=== PATIENT | female | born 1965 | race Caucasian/White ===

== ENCOUNTER 2022-06-14 10:19 | Outpatient (CLI) | payer OTHER, SELFPAY ==
--- NOTE | 2022-06-14 10:26 | MM_ITS ---
WS: [id number] BILATERAL SCREENING DIGITAL TOMOSYNTHESIS MAMMOGRAM WITH CAD HISTORY: SCREENING COMPARISON: 09/26/2020, 09/17/2020 Bilateral CC and MLO views with tomosynthesis and synthetic mammography submitted. Computer aided det ection analyzed. Breast composition: There are scattered areas of fibroglandular density. No suspicious masses, microc alcifications or architectural distortion. Incompletely visualized nodule in the posterior lateral RI GHT breast was present on 09/17/2020 with no increase in size. Biopsy clip RIGHT breast at 9:00. MM/[place] [id number] IMPRESSION: BI-RADS: 2-Benign FOLLOW UP: 1 Year Follow-up
== END 2022-06-14 10:20 | disposition home or self-care (01) ==
LOC: RAD 10:22
PROVIDERS: Visit Provider Nurse Practitioner Family
DX: Z12.31 Encounter for screening mammogram for malignant neoplasm of breast (principal)
CPT/HCPCS: 77063; 77067

== ENCOUNTER 2023-09-08 12:20 | Outpatient (CLI) | payer OTHER, SELFPAY ==
--- NOTE | 2023-09-08 13:16 | MM_ITS ---
WS: [id number] BILATERAL SCREENING DIGITAL TOMOSYNTHESIS MAMMOGRAM WITH CAD HISTORY: SCREENING COMPARISON: 11/30/2014, 06/14/2022 and Bilateral CC and MLO views with tomosynthesis and synthetic mammography submitted. Computer aided det ection analyzed. Breast composition: There are scattered areas of fibroglandular density. No suspicious masses, microc alcifications or architectural distortion. Biopsy clip in the lateral RIGHT breast near 9:00. IMPRESSION: MM/[place] [id number] BI-RADS: 2-Benign FOLLOW UP: 1 Year Follow-up
== END 2023-09-08 12:21 | disposition home or self-care (01) ==
LOC: RAD 12:21
PROVIDERS: Visit Provider Family Medicine
DX: Z12.31 Encounter for screening mammogram for malignant neoplasm of breast (principal); R92.323 Mammographic fibroglandular density, bilateral breasts
CPT/HCPCS: 77063; 77067

== ENCOUNTER 2024-05-06 08:30 | Emergency (ER) | payer OTHER, SELFPAY ==
--- NOTE | 2024-05-06 08:29 | ECG_ITS ---
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 Measurements Intervals [place] Rate: 70 P: 23 FL: 184 QRS: 59 QRSD: 90 T: 60 QT: 402 QTc: 435 Interpretive Statements SINUS RHYTHM No previous ECG available for comparison Electronically Signed On 05-06-2024 19:25:30 CDT by Yaa Hawkins M.D. [id number]
[2024-05-06 08:31] VITALS: BP 151/87; PULSE 76; RESP 18; TEMP 36.6; O2SAT 98; BMI 31.0
--- NOTE | 2024-05-06 08:40 | XRR_ITS ---
PROCEDURE INFORMATION: Exam: XR Complete Acute Abdomen Series Including Chest Exam date and time: 05/06/2024 9:18 AM Age: 58 years old Clinical indication: Constipation; Abdominal pain; Prior surgery; Surgery date: 6+ months; Surgery type: Gallbladder, appendectomy; Additional info: Abdominal pain, syncope TECHNIQUE: Imaging protocol: Radiologic exam. Complete acute abdomen series, including 2 or more views of the abdomen and a single view chest. COMPARISON: No relevant prior studies available. FINDINGS: Lungs: Normal. No consolidation. Pleural spaces: Normal. No pleural effusions. No pneumothorax. Heart/Mediastinum: Normal. No cardiomegaly. Gastrointestinal tract: Pfyj-wp-[id number] fecal burden. No bowel dilation. Intraperitoneal space: There are right upper quadrant clips.. No free air. Bones/joints: Normal. No acute fracture. Soft tissues: Normal. XR/XR acute abdomen series [id number] IMPRESSION: No acute findings.
--- NOTE | 2024-05-06 08:42 | ED_ITS ---
HPI - Syncope 2 General: Chief Complaint: Syncope Stated Complaint: near syncope Time Seen by Provider: 05/06/24 08:36 History of Present Illness: 58-year-old female with a history of lisandra ball who presents emergency room from work by ambulance after having a syncopal event. She said she gone to the bathroom and lost bearing down to try to have a bowel movement and ended up passing out and had some vomiting. Says she was feeling fine prior to this. She says she been constipated since she started Trulicity. Still having some abdominal cramping and feels like she needs to go to the bathroom still. No fevers. No chills. No chest pain. No shortness of breath. No altered mental status. No focal motor deficits. EMS reports normal vitals when they arrived to pick her up. Related Data Previous Rx's Medication Instructions Recorded amoxicillin 875 mg-potassium 1 tab PO BID 10 days #20 tabs 05/06/24 clavulanate 125 mg tablet glycerin (adult) 1 supp MI DAILY PRN constipation 05/06/24 #12 ea magnesium citrate 296 ml PO ONCE #296 mL 05/06/24 ondansetron 8 mg disintegrating 8 mg PO Q6H #14 tabs 05/06/24 tablet polyethylene glycol 3350 17 17 g PO DAILY #510 grams 05/06/24 gram/dose oral powder (Miralax) Review of Systems 2 Narrative: Constitutional symptoms: Negative except as documented in HPI. Skin symptoms: Negative except as documented in HPI. Eye symptoms: Negative except as documented in HPI. ENMT symptoms: Negative except as documented in HPI. Respiratory symptoms: Negative except as documented in HPI. Cardiovascular symptoms: Negative except as documented in HPI. Gastrointestinal symptoms: Negative except as documented in HPI. Genitourinary symptoms: Negative except as documented in HPI. Musculoskeletal symptoms: Negative except as documented in HPI. Neurologic symptoms: Negative except as documented in HPI. Psychiatric symptoms: Negative except as documented in HPI. Endocrine symptoms: Negative except as documented in HPI. Physical Exam 2 Narrative: EXAM NARRATIVE: General: Alert, no acute distress. Skin: Warm, dry. Head: Normocephalic, atraumatic. Neck: Supple, trachea midline. Eye: Extraocular movements are intact. Ears, nose, mouth and throat: mucosa moist. Cardiovascular: Regular, Normal peripheral perfusion. Respiratory: Lungs are clear to auscultation, respirations are non-labored, breath sounds are equal, Symmetrical chest wall expansion. Gastrointestinal: Soft, Nontender, Non distended Musculoskeletal: Normal ROM, no deformity. Neurological: Alert and oriented, No focal neurological deficit observed. Psychiatric: Cooperative, appropriate mood & affect. Course 2 Vital Signs: Vital signs: Vital Signs Temperature 97.8 F 05/06/24 08:31 Pulse Rate 78 05/06/24 10:01 Respiratory Rate 18 05/06/24 08:31 Blood Pressure 162/89 05/06/24 10:01 Pulse Oximetry 98 05/06/24 10:01 Oxygen Delivery Me thod Room Air 05/06/24 10:01 MDM - Syncope Medical Decision Making Medical decision making: Differential diagnosis including but not limited to and based on the above HPI, review of systems and physical exam in this patient with syncope: Vasovagal, orthostatics hypotension, cardiac dysrhythmia, myocardial infarction, infection and hypotension, Orders placed to evaluate differential diagnosis based on the above differential, HPI and physical exam EKG: Time 8:29 AM. Rate 70. Normal sinus rhythm, No ST-T changes, no ectopy, normal MI & QRS intervals, This was reviewed and interpreted by myself the ER physician at 8:33 AM Acute abdominal series: chest x-ray: No acute process. No obvious infiltrates. No pneumothorax. No cardiomegaly. This was reviewed and interpreted by myself the emergency room physician Abdomen x-ray: Nonspecific bowel gas pattern. No evidence of free air or obstruction. This was reviewed and interpreted by myself the emergency room physician. Lab Review: Laboratory results were reviewed and interpreted by myself the emergency room physician. No leukocytosis. No anemia. BUN/creatinine are 17 and 0.7. Sugar is elevated at 236. Urinalysis is negative for infection. CT of the abdomen pelvis with contrast: This shows diffuse colitis. This was reviewed and interpreted by myself the emergency room physician. I also reviewed the radiology report. I reviewed the patient's medical record. Reexamination: Patient remained stable. No increased work of breathing. No altered mental status. No focal motor deficits. No dysrhythmias. Assessment and plan: Colitis Syncope Hyperglycemia ?Normal saline bolus in the emergency room. - Discharged home - Discussed findings and plan with patient. Answered any questions. - All laboratory values were reviewed and interpreted personally by myself, the ER physician - All imaging was reviewed and interpreted personally by myself, the ER physician. - Evaluation and treatment of this problem were appropriate in the emergency setting Lab Data 05/06/24 09:09 05/06/24 09:09 Radiology Impressions Chest/Abdomen X-ray 05/06/24 08:40 IMPRESSION: No acute findings. Abdomen/Pelvis CT 05/06/24 10:09 IMPRESSION: Diffuse colitis Laboratory Results WBC 8.86 10^3/uL (3.29-11.43) 05/06/24 09:09 RBC 4.76 10^6/uL (3.85-5.65) 05/06/24 09:09 Hgb 13.80 g/dL (11.27-16.99) 05/06/24 09:09 Hct 42.2 % (36-47) 05/06/24 09:09 MCV 88.7 fl (85-98) 05/06/24 09:09 MCH 29.0 pg (27-33) 05/06/24 09:09 MCHC 32.7 g/dL (30-55) 05/06/24 09:09 RDW 12.9 % (12.1-15.1) 05/06/24 09:09 Plt Count 227 10^3/cmm (157-399) 05/06/24 09:09 MPV 10.5 fL (7.4-10.4) H 05/06/24 09:09 Neut % (Auto) 70.1 % 05/06/24 09:09 Lymph % (Auto) 18.8 % 05/06/24 09:09 [place] % (Auto) 7.7 % 05/06/24 09:09 Eos % (Auto) 2.6 % 05/06/24 09:09 Baso % (Auto) 0.3 % 05/06/24 09:09 Neut # (Auto) 6.21 10^3/uL (1.8-7.7) 05/06/24 09:09 Lymph # (Auto) 1.7 10^3/uL (0.8-4.8) 05/06/24 09:09 [place] # (Auto) 0.7 10^3/uL (0.2-0.9) 05/06/24 09:09 Eos # (Auto) 0.2 10^3/uL (0.0-0.8) 05/06/24 09:09 Baso # (Auto) 0.0 10^3/uL (0.0-0.1) 05/06/24 09:09 Nucleated RBC % (auto) 0 % 05/06/24 09:09 Nucleated RBCs # 0.0 /100WBC 05/06/24 09:09 Sodium 139 mmol/L (136-145) 05/06/24 09:09 Potassium 3.2 mmol/L (3.5-5.1) L 05/06/24 09:09 Chloride 99 mmol/L (98-107) 05/06/24 09:09 Carbon Dioxide 27 mmol/L (22-29) 05/06/24 09:09 Anion Gap 16.2 (5-19) 05/06/24 09:09 BUN 17 mg/dL (6-20) 05/06/24 09:09 Creatinine 0.7 mg/dL (0.5-0.9) 05/06/24 09:09 GFR Calculation 86.6 mL/min (90-130) L 05/06/24 09:09 Glucose 236 mg/dL (65-115) H 05/06/24 09:09 Calculated Osmolality 297 mOsm/kg (285-295) H 05/06/24 09:09 Lactic Acid 2.8 mmol/L (0.5-2.2) H 05/06/24 09:09 Calcium 9.4 mg/dL (8.5-10.5) 05/06/24 09:09 Total Bilirubin 0.4 mg/dL (0.15-1.2) 05/06/24 09:09 AST 21 U/L (0-32) 05/06/24 09:09 ALT 20 U/L (0-33) 05/06/24 09:09 Alkaline Phosphatase 120 U/L (35-105) H 05/06/24 09:09 Troponin T Baseline < 6 ng/L (0-10) 05/06/24 09:09 C-Reactive Protein 7.9 mg/L (0.0-4.9) H 05/06/24 09:09 Total Protein 7.0 g/dL (6.6-8.7) 05/06/24 09:09 Albumin 4.3 g/dL (3.5-5.2) 05/06/24 09:09 Globulin 2.7 g/dL (1.3-4.6) 05/06/24 09:09 Urine Color Yellow (Yellow) 05/06/24 10:28 Urine Appearance Clear (CLEAR) 05/06/24 10:28 Urine pH 7.5 (5-7) 05/06/24 10:28 Ur Specific [place] 1.012 (1.005-1.030) 05/06/24 10:28 Urine Protein Negative (Negative) 05/06/24 10:28 Urine Glucose (UA) Trace (Normal) H 05/06/24 10:28 Urine Ketones Negative (Negative) 05/06/24 10:28 Urine Blood Non-haemolysed trace (Negative) 05/06/24 10:28 Urine Nitrate Negative (Negative) 05/06/24 10:28 Urine Bilirubin Negative (Negative) 05/06/24 10:28 Urine Urobilinogen 2.0 mg/dL (Negative) H 05/06/24 10:28 Ur Leukocyte Esterase Negative (Negative) 05/06/24 10:28 Urine RBC 3-5 /hpf (0-2) 05/06/24 10:28 Urine WBC 0-5 /hpf (0-5) 05/06/24 10:28 Ur Squamous Epith Cells 0-5 /hpf (0-5) 05/06/24 10:28 Amorphous Sediment Not Reportable 05/06/24 10:28 Urine Bacteria Trace /hpf (NONE) 05/06/24 10:28 Hyaline Casts 0-4 /lpf H 05/06/24 10:28 Coronavirus (PCR) Negative (Negative) 05/06/24 09:12 Influenza A (PCR) Negative (Negative) 05/06/24 09:12 Influenza Type B (PCR) Negative (Negative) 05/06/24 09:12 RSV (PCR) Negative (Negative) 05/06/24 09:12 All radiology interpretation(s) finalized by discharge Discharge Plan Discharge Patient Disposition: Home Clinical Impression: Colitis, Vasovagal syncope, Abdominal pain, Constipation, Dehydration, Hyperglycemia Condition: Stable Prescriptions: New ondansetron 8 mg tablet,disintegrating 8 mg PO Q6H Qty: 14 0RF Rx Instructions: Take 1/2-1 tab every 6 hours as needed for nausea and vomiting magnesium citrate Solution 296 ml PO ONCE Qty: 296 0RF Miralax 17 gram/dose powder 17 g PO DAILY Qty: 510 0RF Rx Instructions: Take 1-2 scoops daily for the next 3 months to keep stools soft glycerin (adult) Suppository 1 supp MI DAILY PRN (Reason: constipation) Qty: 12 0RF amoxicillin-pot clavulanate 875-125 mg tablet 1 tab PO BID 10 Days Qty: 20 0RF Discharge Orders: Discharge ED (Routine); Ordered 05/06/24 Ordered By: Kate Roque Discharge Diet: Usual diet Discharge Activity: Increase activity as tolerated Patient Instructions: Constipation (ED), Syncope (ED), Colitis (ED) Activity Restrictions/Additional Instructions: Thank you for choosing [facility] for your healthcare needs today. Please realize this is an emergency room and that we are providing you with a medical screening exam and this may not be complete and all inclusive of all the testing and or work up that you may need to determine your ailment or severity of your illness. You have been screened and evaluated and felt safe for discharge. Health conditions do change or evolve sometimes and as such it is important that you follow up with your Primary Doctor to be re checked, 3-5 days is a general good time frame for follow up. You are always welcome to return to the ED for re assessment if your symptoms are worsening or you have new concerns Coding Level of Care Code ED Subassembler for Jameel Navarro
[2024-05-06] MEDS: sodium chloride 0.9% 1,000 ML 999 ML IV (09:14)
[2024-05-06 09:18] LABS: Basophils % 0.3 %; Eosinophils # 0.2 10^3/uL (0.0-0.8); Eosinophils % 2.6 %; Hematocrit 42.2 % (36-47); Lymphocytes # 1.7 10^3/uL (0.8-4.8); Lymphocytes % 18.8 %; Mean Corpuscular HGB Conc 32.7 g/dL (30-55); Mean Corpuscular Volume 88.7 fl (85-98); Mean Platelet Volume 10.5 fL (7.4-10.4); Monocytes # 0.7 10^3/uL (0.2-0.9); Monocytes % 7.7 %; Neutrophils # 6.21 10^3/uL (1.8-7.7); Neutrophils % 70.1 %; Nucleated Red Blood Cells % 0 %; Platelet Count 227 10^3/cmm (157-399); Red Blood Count 4.76 10^6/uL (3.85-5.65); Red Cell Distribution Width 12.9 % (12.1-15.1); White Blood Count 8.86 10^3/uL (3.29-11.43)
[2024-05-06 09:40] LABS: Alanine Aminotransferase 20 U/L (0-33); Albumin Level 4.3 g/dL (3.5-5.2); Alkaline Phosphatase 120 U/L (35-105); Anion Gap 16.2 (5-19); Aspartate Amino Transferase 21 U/L (0-32); Blood Urea Nitrogen 17 mg/dL (6-20); C Reactive Protein 7.9 mg/L (0.0-4.9); Calcium 9.4 mg/dL (8.5-10.5); Carbon Dioxide 27 mmol/L (22-29); Chloride 99 mmol/L (98-107); Creatinine Clr Calc Pharmacy 79.5436; Globulin 2.7 g/dL (1.3-4.6); Glomerular Filtration Rate 86.6 mL/min (90-130); Glucose 236 mg/dL (65-115); Osmolality Calculated 297 mOsm/kg (285-295); Potassium 3.2 mmol/L (3.5-5.1); Sodium 139 mmol/L (136-145); Total Bilirubin 0.4 mg/dL (0.15-1.2)
[2024-05-06 09:41] LABS: Lactic Sepsis W/Reflex 2.8 mmol/L (0.5-2.2)
[2024-05-06 09:59] LABS: Covid PCR NEGATIVE (Negative); Influenza A NEGATIVE (Negative); Influenza B NEGATIVE (Negative); Respiratory Syncytial Virus Ce NEGATIVE (Negative)
[2024-05-06 10:01] VITALS: BP 162/89; PULSE 78; O2SAT 98
[2024-05-06 10:02] LABS: Troponin(5th) Baseline < 6 ng/L (0-10)
--- NOTE | 2024-05-06 10:09 | CTR_ITS ---
PROCEDURE INFORMATION: Exam: CT Abdomen And Pelvis With Contrast Exam date and time: 05/06/2024 10:47 AM Age: 58 years old Clinical indication: Abdominal pain; Localized; Lower; Prior surgery; Surgery date: 6+ months; Surgery type: Gb TECHNIQUE: Imaging protocol: Computed tomography of the abdomen and pelvis with contrast. Radiation optimization: All CT scans at this facility use at least one of these dose optimization techniques: automated exposure control; mA and/or kV adjustment per patient size (includes targeted exams where dose is matched to clinical indication); or iterative reconstruction. Contrast material: OMNIPAQUE 350; Contrast volume: 100 ml; Contrast route: INTRAVENOUS (IV); COMPARISON: CR (ABDOMEN, ) 05/06/2024 9:18 AM RADIATION DOSE METRICS: Total DLP (mGy-cm): 533.73 FINDINGS: Lungs: Lung bases are clear. No pleural effusion. Liver: Normal. No mass. Gallbladder and biliary ducts: The gallbladder has been resected. Pancreas: Normal. No ductal dilation. Spleen: Normal. No splenomegaly. Adrenal glands: Normal. No mass. Kidneys and ureters: Normal. No hydronephrosis. Stomach and bowel: There is prominent wall inflammation involving the entire colon. No bowel distension noted. Appendix: No evidence of appendicitis. Intraperitoneal space: Unremarkable. No free air. No significant fluid collection. Vasculature: Unremarkable. No abdominal aortic aneurysm. Lymph nodes: Unremarkable. No enlarged lymph nodes. Urinary bladder: Unremarkable as visualized. Reproductive: Unremarkable as visualized. Bones/joints: Unremarkable. No acute fracture. Soft tissues: Unremarkable. CT/CT abdomen pelvis w con* [id number] IMPRESSION: Diffuse colitis
[2024-05-06 10:36] LABS: Bilirubin Urine Negative (Negative); Blood Urine Non-haemolysed trace (Negative); Glucose Urine UA Trace (Normal); Ketones Urine Negative (Negative); Leukocyte Esterase Urine Negative (Negative); Nitrate Urine Negative (Negative); Protein Urine Negative (Negative); Specific Gravity, Urine 1.012 (1.005-1.030); Urine Appearance Clear (CLEAR); Urine Color Yellow (Yellow); pH Urine 7.5 (5-7)
[2024-05-06 10:41] LABS: Bacteria Urine Trace /hpf; Hyaline Casts Urine 0-4 /lpf; Squamous Epithelial Cell Urine 0-5 /hpf (0-5); WBC Urine 0-5 /hpf (0-5)
[2024-05-06] MEDS: iohexol 350 mg/mL 500 mL Btl (per mL) IV (10:50)
[2024-05-06 11:02] LABS: Reflex Lactate Order REFLEX LACTIC ORDERD
[2024-05-06 13:02] VITALS: BP 175/89; PULSE 91; O2SAT 95
== END 2024-05-06 12:40 | disposition home or self-care (01) ==
PROVIDERS: Emergency Provider Emergency Medicine
DX: R55 Syncope and collapse (principal); K52.9 Noninfective gastroenteritis and colitis, unspecified; K59.00 Constipation, unspecified; E86.0 Dehydration; R73.9 Hyperglycemia, unspecified
CPT/HCPCS: 0241U; 36415; 74022; 74177; 80053; 81001; 83605; 84484; 85025; 86140; 93005; 99285; J7030

== ENCOUNTER 2025-03-24 04:18 | Emergency (ER) | payer OTHER, SELFPAY ==
--- OUTSIDE RECORDS SUMMARY | 2013-12-22 15:16 | XMS_ITS | Continuity of Care Document ---
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 Wearing Apparel Shaker Name Role Phone Unavailable Unavailable Unavailable Medications Medication Instructions Dosage Effective Dates (start - stop) Status Comments metformin 500 mg tablet take 1 tablet (500MG) by oral route every day 500 MG - Active terbinafine 1 % Topical Cream apply by topical route every day to the affected and surrounding areas of skin for ringworm 0.00 - Active atenolol 25 mg tablet take 1 tablet (25MG) by oral route every day for hyperthyroidism 25 MG - Active lisinopril 20 mg tablet take 1 tablet (20MG) by oral route every day 20 MG - Active methimazole 10 mg tablet take 1 tablet (10MG) by oral route every day 10 MG - Active Procedures Procedure Date COLLECTION OF VENOUS BLOOD BY VENIPUNCTU RE OFFICE/OUTPATIENT VISIT, EST COLLECTION OF VENOUS BLOOD BY VENIPUNCTU RE OFFICE/OUTPATIENT VISIT, EST INFLUENZA VACCINE, AGE 3YRS+ Immun admin-adult or WO counseling - fir st vaccine/toxoid COLLECTION OF VENOUS BLOOD BY VENIPUNCTU RE COLLECTION OF VENOUS BLOOD BY VENIPUNCTU RE Extraction erupted tooth or exposed root Limit oral eval problem focused 012 Periapical first film Advance Directives Directive Yes / No Effective Date File Name No Information Encounters Encounter Description Practice Location Reason(s) For Visit Diagnoses Date Provider Providers Copied on Encounter [facility], [address], [place], [place], [address] , [place] tel: [phone] [facility] No Information 4 No Information OFFICE/OUTPA TIENT VISIT, EST [facility], [address], [place], [place], [address] , [place] tel: [phone] [facility] follow up on lab / diagnostic test (chief complaint) HTN (hypertension)H yperthyroidismP rediabetesTrans aminitis 2 No Information [facility], [address], [place], [place], [id number] , [place] tel: [phone] [facility] No Information 2 No Information OFFICE/OUTPA TIENT VISIT, EST [facility], [address], [place], [place], [address] , [place] tel: [phone] [facility] follow up on lab / diagnostic test (chief complaint) Hyperthyroidism Transaminitis 2 No Information [facility], [address], [place], [place], [address] , [place] tel: [phone] [facility] hypertension (chief complaint)ski n rash (chief complaint) HTN (hypertension)R outine health maintenanceNeed for prophylactic vaccination and inoculation, influenza 2 No Information [facility], [address], [place], [place], [address] , [place] tel: [phone] [facility] hypertension (chief complaint) Other malaise and fatigueBenign essential hypertension 2 No Information [facility], [address], [place], [place], [address] , [place] tel: [phone] [facility] Dental examination 2 No Information [facility], [address], [place], [place], [address] , [place] tel: [phone] [facility] examination 2 No Information Family History Family Member Type Diagnosis Age At Onset Problem (finding) Family history of Diabe jono mellitus Sister Problem (finding) Cancer, unknown Sister Problem (finding) Mental illness Sister Problem (finding) Renal disease Problem (finding) Family history of Diabe jono mellitus Immunizations Vaccine Date Status Comments Flu (split) (3 yrs or older) administered Source: New Immunization Record Payers Payer name Insurance type Covered democrat ID Authoriza tion(s) No Information Social History Type Description Quantity Date Captured Comments Sex Female Smoking Status No Information Chief Complaint And Reason For Visit No Information Reason For Referral Reason For Referral No Information Plan Of Treatment Date Type Action Status Referral Referred To: [facility] [phone] Ordered: Referral: [facility]. Mammography Screening Cntr. Diagnostic testing. ordered Future Order: Lab Order CBC (INC LUDES DIFF/PLT) ([id number]), Appointment on: , Sent on: Sent Future Order: Lab Order COMPREHE NSIVE METABOLIC PANEL W/EGFR ([id number]), Appointment on: , Sent on: Sent History Of Present Illness Encounter Date Complaint History Of Prese nt Illness No Information Functional Status Date Functional Assessmen t No Information Instructions Date Instruction Additional Infor mation Home blood pressure check Increase activity level Take medications as prescribed Assessments Type Assessment Date No Information Patient Care Teams Name Effective Dates (start - stop) Status Members No Information
--- NOTE | 2025-03-24 04:23 | ECG_ITS ---
[facility]25[facility]24 Pat Name: Annabelle Schmitz Department: Room: Gender: Female Cst: : 1965 Requested By: Chandana Morris Order Number: [id number] Ghassan MD: Yaa Hawkins M.D. Measurements Intervals [place] Rate: 63 P: 8 MI: 177 QRS: 43 QRSD: 82 T: 68 QT: 405 QTc: 416 Interpretive Statements SINUS RHYTHM Compared to ECG 05/06/2024 08:29:38 No significant changes Electronically Signed On 03-26-2025 08:17:46 CDT by Yaa Hawkins M.D. [email or web address]
--- OUTSIDE RECORDS SUMMARY | 2025-03-24 04:25 | XMS_ITS | Clinical Summary ---
Author Organization [facility] Address [address] [place] [address] DAPHNE MILLER [phone] Phone Care Team Providers Care Financial Services Internship Name Role Phone Unavailable Primary Care Provider Unavailabl e Social History Tobacco Use Types Packs/Day Years Used Date Smoking Tobacco: Never Assessed Comments Unknown Sex and Gender Information Value Date Recorded Sex Assigned at Not on file Legal Sex Female 10:39 PM CDT Gender Identity Not on file Sexual Orientation Not on file Plan of Treatment Health Maintenance Due Date Last Done Comments DIABETES ANNUAL FOOT EXAM 10/18/1985 DIABETES ANNUAL RETINAL EXAM 10/18/1985 DIABETES MICROALBUMIN ANNUAL SCREEN 10/18/1985 LDL CHOLESTEROL ANNUAL 10/18/1985 HEPATITIS B VACCINES (1 of 3 - 19+ 3-dose series) 10/18/1986 COLORECTAL SCREENING 10/18/2012 Colorectal Cancer Screening 10/18/2012 FIT-DNA Q 3 years 10/18/2012 FIT/FOBT Q 1 year 10/18/2012 Flex Sig/CT Colonography Q 5 years 10/18/2012 ZOSTER VACCINE (1 of 2) 10/18/2017 DIABETES HBA1C Q 6 MONTHS 03/09/2021 09/09/2020 BREAST CANCER SCREENING 10/21/2021 10/21/2020, 10/21 INFLUENZA VACCINE (#1) 2025 , 08/10/2019, 05/04/2012 DTAP/TDAP/TD VACCINES (2 - T d or Tdap) 08/10/2029 08/10/2019 Insurance [employer]
[2025-03-24 04:32] VITALS: BP 224/101; PULSE 68; RESP 20; TEMP 36.9; O2SAT 99; BMI 31.2
--- NOTE | 2025-03-24 04:39 | XRR_ITS ---
PROCEDURE INFORMATION: Exam: XR Chest Exam date and time: 03/24/2025 4:42 AM Age: 59 years old Clinical indication: Other: Hypertensive; Additional info: HTN TECHNIQUE: Imaging protocol: Radiologic exam of the chest. Views: 1 view. COMPARISON: CR XR acute abdomen series [id number] 05/06/2024 9:18 AM FINDINGS: Lungs: Unremarkable. No consolidation. Pleural spaces: Unremarkable. No pleural effusion. No pneumothorax. Heart/Mediastinum: Unremarkable. No cardiomegaly. Bones/joints: Unremarkable. XR/XR chest 1V portable [id number] IMPRESSION: There is no evidence of active disease.
[2025-03-24 04:46] LABS: Hematocrit 41.6 % (36-47); Hemoglobin 13.60 g/dL (11.27-16.99); Mean Corpuscular HGB Conc 32.7 g/dL (30-55); Mean Corpuscular Hemoglobin 28.2 pg (27-33); Mean Corpuscular Volume 86.1 fl (85-98); Nucleated Red Blood Cells % 0 %; Platelet Count 237 10^3/cmm (157-399); Red Blood Count 4.83 10^6/uL (3.85-5.65); White Blood Count 6.31 10^3/uL (3.29-11.43)
[2025-03-24 04:47] VITALS: BP 198/114; PULSE 62; RESP 18; O2SAT 98
[2025-03-24] MEDS: hyDRALAzine 20 mg/mL INJ 1 mL IVP (04:53)
[2025-03-24 05:00] VITALS: BP 163/83; PULSE 78; RESP 16; O2SAT 98
--- NOTE | 2025-03-24 05:06 | W.ED.GENADLT ---
HPI - General Adult General: Chief complaint: General Medical Stated complaint: high blood pressure shootingarm/shoulder/back pain Time Seen by Provider: 03/24/25 04:41 History of Present Illness: 59-year-old female with a history of hypertension. She presents with left-sided shoulder pain radiating into her arm. She has been out of her blood pressure medication for a month or so. She notes that her blood pressure has been high. The pain worried her because of this this morning. She usually takes enalapril/hydrochlorothiazide to control her blood pressure. As above she has been out for a month. No overt chest pain or shortness of breath. She has had some fatigue. She has been meaning to call her doctor to get her medication refilled but has not taken the time Related Data Previous Rx's ?Medication ?Instructions ?Recorded glycerin (adult) 1 supp CA DAILY PRN constipation 05/06/24 #12 ea magnesium citrate 296 ml PO ONCE #296 mL 05/06/24 ondansetron 8 mg disintegrating 8 mg PO Q6H #14 tabs 05/06/24 tablet polyethylene glycol 3350 17 17 g PO DAILY #510 grams 05/06/24 gram/dose oral powder (Miralax) enalapril 10 1 tab PO DAILY #30 tabs 03/24/25 mg-hydrochlorothiazide 25 mg tablet Allergies Allergy/AdvReac Type Severity Reaction Status Date / Time No Known Allergies Allergy Verified 03/24/25 04:46 Physical Exam Const: COMMON NORMALS: no acute distress GENERAL APPEARANCE: cooperative; not ill appearing and not frail appearing HENMT: COMMON NORMALS: normocephalic, atraumatic and Normal external nose present HEAD & SCALP: normocephalic and atraumatic FACE & SINUS: normal facial exam and face symmetric NOSE: Normal external nose present Eye: COMMON NORMALS: Equal, round and reactive pupils present and EOMs intact bilaterally PUPIL: Yes Equal, round and reactive pupils present Neck/C-Spine: GENERAL: Yes trachea midline Chest: CHEST: Yes Symmetrical chest wall rise Resp: COMMON NORMALS: normal respiratory effort, No retractions, No use of accessory muscles and clear to auscultation bilaterally AUSCULTATION: clear to auscultation bilaterally Cardio: COMMON NORMALS: regular rate and regular rhythm RATE: regular rate RHYTHM: regular rhythm GI: COMMON NORMALS: Normal to inspection, nondistended, normoactive bowel sounds present Extremity: COMMON NORMALS: no pedal edema Neuro: ED COMA SCALE: document GCS findings [place] coma scale eye opening: Spontaneous [place] coma scale verbal response: Orientated [place] coma scale motor response: Obey commands Ed coma scale total score: 15 SENSORY EXAM: Yes extremities (intact) Psych: COMMON NORMALS: speech normal SPEECH: Yes normal speech Skin: COMMON NORMALS: no rashes or lesions noted GENERAL SKIN EXAM: no rashes or lesions noted Course Vital Signs: Vital signs: Vital Signs Temperature 98.4 F 03/24/25 04:32 Pulse Rate 80 03/24/25 05:28 Respiratory Rate 16 03/24/25 05:28 Blood Pressure 163/83 03/24/25 05:28 Pulse Oximetry 97 03/24/25 05:28 Oxygen Delivery Me thod Room Air 03/24/25 04:32 MDM - General Adult Medical Decision Making Blood pressure improved after medication. EKG is normal. Chest x-ray is normal. CBC is normal. Urinalysis shows no significant proteinuria. With improvement in her pressure, she will be discharged to home on her home medication. She is to check her blood pressure twice daily and follow-up closely with her doctor. Lab Data 03/24/25 04:30 03/24/25 04:30 Radiology Impressions Chest X-Ray 03/24/25 04:39 IMPRESSION: There is no evidence of active disease. Laboratory Results WBC 6.31 10^3/uL (3.29-11.43) 03/24/25 04:30 RBC 4.83 10^6/uL (3.85-5.65) 03/24/25 04:30 Hgb 13.60 g/dL (11.27-16.99) 03/24/25 04:30 Hct 41.6 % (36-47) 03/24/25 04:30 MCV 86.1 fl (85-98) 03/24/25 04:30 MCH 28.2 pg (27-33) 03/24/25 04:30 MCHC 32.7 g/dL (30-55) 03/24/25 04:30 RDW 13.0 % (12.1-15.1) 03/24/25 04:30 Plt Count 237 10^3/cmm (157-399) 03/24/25 04:30 MPV 10.3 fL (7.4-10.4) 03/24/25 04:30 Neut % (Auto) 52.4 % 03/24/25 04:30 Lymph % (Auto) 34.2 % 03/24/25 04:30 [place] % (Auto) 7.4 % 03/24/25 04:30 Eos % (Auto) 4.8 % 03/24/25 04:30 Baso % (Auto) 0.6 % 03/24/25 04:30 Neut # (Auto) 3.30 10^3/uL (1.8-7.7) 03/24/25 04:30 Lymph # (Auto) 2.2 10^3/uL (0.8-4.8) 03/24/25 04:30 [place] # (Auto) 0.5 10^3/uL (0.2-0.9) 03/24/25 04:30 Eos # (Auto) 0.3 10^3/uL (0.0-0.8) 03/24/25 04:30 Baso # (Auto) 0.0 10^3/uL (0.0-0.1) 03/24/25 04:30 Nucleated RBC % (auto) 0 % 03/24/25 04:30 Nucleated RBCs # 0.0 /100WBC 03/24/25 04:30 Sodium 140 mmol/L (136-145) 03/24/25 04:30 Potassium 4.2 mmol/L (3.5-5.1) 03/24/25 04:30 Chloride 102 mmol/L (98-107) 03/24/25 04:30 Carbon Dioxide 26 mmol/L (22-29) 03/24/25 04:30 Anion Gap 16.2 (5-19) 03/24/25 04:30 BUN 15 mg/dL (6-20) 03/24/25 04:30 Creatinine 0.7 mg/dL (0.5-0.9) 03/24/25 04:30 GFR Calculation 86.2 mL/min (90-130) L 03/24/25 04:30 Glucose 185 mg/dL (65-115) H 03/24/25 04:30 Calculated Osmolality 296 mOsm/kg (285-295) H 03/24/25 04:30 Calcium 9.5 mg/dL (8.5-10.5) 03/24/25 04:30 Total Bilirubin 0.3 mg/dL (0.15-1.2) 03/24/25 04:30 AST 20 U/L (0-32) 03/24/25 04:30 ALT 21 U/L (0-33) 03/24/25 04:30 Alkaline Phosphatase 82 U/L (35-105) 03/24/25 04:30 Troponin T Baseline 7 ng/L (0-10) 03/24/25 04:30 NT-Pro-B Natriuret Pep 365 pg/mL (0-125) H 03/24/25 04:30 Total Protein 7.3 g/dL (6.6-8.7) 03/24/25 04:30 Albumin 4.4 g/dL (3.5-5.2) 03/24/25 04:30 Globulin 2.9 g/dL (1.3-4.6) 03/24/25 04:30 Urine Color Yellow (Yellow) 03/24/25 05:00 Urine Appearance Clear (CLEAR) 03/24/25 05:00 Urine pH 7.0 (5-7) 03/24/25 05:00 Ur Specific [place] 1.013 (1.005-1.030) 03/24/25 05:00 Urine Protein Negative (Negative) 03/24/25 05:00 Urine Glucose (UA) 1+ (Normal) H 03/24/25 05:00 Urine Ketones Negative (Negative) 03/24/25 05:00 Urine Blood Negative (Negative) 03/24/25 05:00 Urine Nitrate Negative (Negative) 03/24/25 05:00 Urine Bilirubin Negative (Negative) 03/24/25 05:00 Urine Urobilinogen 0.2 mg/dL (Negative) 03/24/25 05:00 Ur Leukocyte Esterase Negative (Negative) 03/24/25 05:00 Urine RBC 0-2 /hpf (0-2) 03/24/25 05:00 Urine WBC 0-5 /hpf (0-5) 03/24/25 05:00 Ur Squamous Epith Cells 0-5 /hpf (0-5) 03/24/25 05:00 Amorphous Sediment Not Reportable 03/24/25 05:00 Urine Bacteria None seen /hpf (NONE) 03/24/25 05:00 Hyaline Casts 0.40 /lpf 03/24/25 05:00 All radiology interpretation(s) finalized by discharge Discharge Plan Discharge Patient Disposition: Home Clinical Impression: Hypertension Condition: Stable Prescriptions: New enalapril-hydrochlorothiazide 10-25 mg tablet 1 tab PO DAILY Qty: 30 0RF No Action ondansetron 8 mg tablet,disintegrating 8 mg PO Q6H Qty: 14 0RF Rx Instructions: Take 1/2-1 tab every 6 hours as needed for nausea and vomiting magnesium citrate Solution 296 ml PO ONCE Qty: 296 0RF Miralax 17 gram/dose powder 17 g PO DAILY Qty: 510 0RF Rx Instructions: Take 1-2 scoops daily for the next 3 months to keep stools soft glycerin (adult) Suppository 1 supp CA DAILY PRN (Reason: constipation) Qty: 12 0RF Discharge Orders: Discharge ED (Routine); Ordered 03/24/25 Ordered By: Chandana Oropeza Patient Instructions: Hypertension (ED), Opioid Safety, Pain Management, Patient Portal & [place] Instructions Activity Restrictions/Additional Instructions: Your medication has been refilled and sent to your pharmacy. Check your blood pressure twice daily. Report numbers to your doctor. Call for an appointment for follow-up. Return for worsening shoulder pain, development of chest pain or shortness of breath, any other concerning symptoms Print Language: Indonesian Coding Level of Care Code ED Director Cpg for Jameel Navarro
[2025-03-24 05:08] LABS: Troponin(5th) Baseline 7 ng/L (0-10)
[2025-03-24 05:09] LABS: Glucose Urine UA 1+ (Normal); Nitrate Urine Negative (Negative); Specific Gravity, Urine 1.013 (1.005-1.030)
[2025-03-24 05:11] LABS: Add Urine Microscopic? YES
[2025-03-24 05:15] LABS: Alanine Aminotransferase 21 U/L (0-33); Albumin Level 4.4 g/dL (3.5-5.2); Alkaline Phosphatase 82 U/L (35-105); Anion Gap 16.2 (5-19); Aspartate Amino Transferase 20 U/L (0-32); Blood Urea Nitrogen 15 mg/dL (6-20); Calcium 9.5 mg/dL (8.5-10.5); Carbon Dioxide 26 mmol/L (22-29); Chloride 102 mmol/L (98-107); Creatinine Clr Calc Pharmacy 78.8508; Globulin 2.9 g/dL (1.3-4.6); Glucose 185 mg/dL (65-115); NT Pro B Type Natriuretic Pept 365 pg/mL (0-125); Osmolality Calculated 296 mOsm/kg (285-295); Potassium 4.2 mmol/L (3.5-5.1); Sodium 140 mmol/L (136-145); Total Protein 7.3 g/dL (6.6-8.7)
[2025-03-24 05:28] VITALS: BP 163/83; PULSE 80; RESP 16; O2SAT 97
== END 2025-03-24 05:35 | disposition home or self-care (01) ==
PROVIDERS: Emergency Provider Emergency Medicine; PCP Nurse Practitioner Family
DX: I10 Essential (primary) hypertension (principal); M25.512 Pain in left shoulder; Z79.899 Other long term (current) drug therapy; Z91.148 Patient's other noncompliance with medication regimen for other reason
CPT/HCPCS: 36415; 71045; 80053; 81001; 83880; 84484; 85025; 93005; 96374; 99285; J0360; J9999